=== PATIENT | female | born 1955 | race Caucasian/White ===

== ENCOUNTER 2016-08-02 11:44 | Day surgery (SDC) | payer OTHER ==
[~2016-08-02] VITALS: Ht 167.6 cm; Wt 66.2 kg
[~2016-08-02 11:44] MED LIST: FOLIC ACID1 MG PO; LEVETIRACETAM500 MG PO; MELATONIN5 MG PO; MILK THISTLE140 MG PO; MULTIPLE VITAMIN PO; RED YEAST RICE PO; STOOL SOFTENER100 M1 PO; TRAZODONE HCL50 MG PO; TYLENOL325 MG PO; VITAMIN D-31000 UNIT PO
--- NOTE | 2016-08-02 14:56 | Provider's Discharge Care Plan ---
Problem, Goal, Plan Problem List 1. S/P COLONOSCOPY WITH BX Goals: Diagnostic testing, Screening Instructions: Follow up as directed, Take meds as directed
--- NOTE | 2016-08-02 14:56 | Provider's Discharge Care Plan ---
Problem, Goal, Plan Problem List 1. S/P COLONOSCOPY WITH BX Goals: Diagnostic testing, Screening Instructions: Follow up as directed, Take meds as directed
--- NOTE | 2016-08-02 15:08 | Operative Report ---
Operative Report Date of Surgery: 08/02/16 Preoperate Diagnosis: surveillance colonoscopy for anastomosis Postoperative Diagnosis: Lebron colitis Surgeon: Jan Fagan MD [employer]plane Inspector Surgeon: none Procedure Performed: Colonoscopy and pancolonic biopsies Anesthesia: TIVA Indications: 60-year-old female status post colostomy takedown at [facility] complicated by anastomotic leak requiring loop ileostomy. Scheduled for surveillance colonoscopy. FINDINGS: Patient had a very poor prep as expected. Right colon visualized and noted to have raphael within the lumen of the bowel. The patient had mild inflammatory changes throughout the colon. Difficult to ascertain the anastomotic site. A tight area at approximately 20 cm from the anal verge which could have been the anastomosis. No gross evidence of stricture. Surgical Technique: Patient was brought to the operating room. Patient was placed in the left lateral decubitus position. Patient was administered TIVA by anesthesia. Once anesthesia had taken effect digital rectal examination was performed. No masses or stenosis was appreciated. This was then followed by the passage of a fiberoptic video flexible Olympus colonoscope. The aforementioned findings noted. The scope was then passed with difficulty and the right colon/perhaps cecum was visualized. The proximal right colon/cecum was identified anterior abdominal wall ballottement. Anatomy was distorted. On withdrawing the scope the aforementioned findings were noted. The scope was then retroflexed and a good view of the rectal wall obtained. The scope was then completely withdrawn. Patient tolerated procedure well. Patient was transferred to the recovery room in stable condition. There were no intraoperative or anesthetic complications.
[2016-08-02 15:54] VITALS: BP 135/78
== END 2016-08-02 15:58 | disposition home or self-care (01) ==
LOC: OR SRH 11:44 → SCU SRH 11:45 → OR SRH 14:00
PROVIDERS: Specialist
PROC: 0DBK8ZX Excision of Ascending Colon, Via Natural or Artificial Opening Endoscopic, Diagnostic (ICD-10-PCS; principal; 2016-08-02 14:00)
DX: Z09 Encounter for follow-up examination after completed treatment for conditions other than malignant neoplasm (principal); K52.89 Other specified noninfective gastroenteritis and colitis; Z90.49 Acquired absence of other specified parts of digestive tract
CPT/HCPCS: 29229; 29240; 50004; 60001; 82944; 83526